=== PATIENT | female | born 1975 | race Two or more races ===

== ENCOUNTER 2019-04-14 10:30 | Emergency (ER) | payer OTHER ==
[~2019-04-14] VITALS: Ht 152.4 cm; Wt 70.3 kg
[2019-04-14 10:49] VITALS: BP 113/71
[2019-04-14 11:56] LABS: Urine Bacteria FEW /hpf (None Seen); Urine Blood 1+ /uL (Negative); Urine Mucus FEW (None Seen); Urine Specific Gravity 1.039 (1.001-1.035); Urine WBC 37 /hpf (0 - 5)
== END 2019-04-14 13:37 | disposition left against medical advice (07) ==
LOC: ER 10:30
DX: R10.32 Left lower quadrant pain (principal); Z53.21 Procedure and treatment not carried out due to patient leaving prior to being seen by health care provider
CPT/HCPCS: 81001

== ENCOUNTER 2020-01-02 14:19 | Emergency (ER) | payer BC, OTHER ==
[~2020-01-02] VITALS: Ht 152.4 cm; Wt 74.8 kg
[2020-01-02] MEDS ORDERED: DOXYCYCLINE 100MG/250ML 250 ML IV ONE (18:30)
[2020-01-02] MEDS ORDERED: DexAMETHasone SOD PHOS 10MG/1ML VIAL INJ IV ONE (18:30)
[2020-01-02] MEDS ORDERED: SODIUM CHLORIDE 0.9% 1,000 ML IV ONE (18:30)
[2020-01-02 19:27] LABS: Albumin 3.5 g/dL (3.4-5.0); BUN/Creatinine Ratio 20.8; Calcium 8.7 mg/dL (8.5-10.1); Potassium 3.4 mmol/L (3.5-5.1)
[2020-01-02 19:29] LABS: Bilirubin, Total 0.2 mg/dL (0.2-1.0)
[2020-01-02 19:30] LABS: INR 0.96 (0.9-1.15); Partial Thromboplastin Time 26.2 sec (23.0-31.2)
[2020-01-02 20:13] LABS: Basophils # (auto) 0 10 ^3/uL (0-0.2); Basophils % (auto) 0.1 % (0.0-2.0); Eosinophils # (auto) 0 10 ^3/uL (0-0.8); Eosinophils % (auto) 0.1 % (0.0-7.0); Hematocrit 34.8 % (36.0-46.0); Hemoglobin 11.4 g/dL (12.2-16.2); Lymphocytes # (auto) 0.7 10 ^3/uL (0.4-5.4); Lymphocytes % (auto) 15.7 % (10.0-50.0); Mean Corpuscular Hemoglobin 29.8 pg (28.0-32.0); Mean Corpuscular Hgb Conc. 32.7 g/dL (32.0-36.0); Mean Corpuscular Volume 91.1 fL (80.0-100.0); Monocytes # (auto) 0.3 10 ^3/uL (0-1.3); Monocytes % (auto) 6.4 % (0.0-12.0); Neutrophils # (auto) 3.3 10 ^3/uL (1.6-8.6); Neutrophils % (auto) 77.7 % (37.0-80.0); Platelet Count (auto) 194 10^3/uL (140-450); Red Blood Cells 3.82 10^6/uL (4.0-5.20); Red Cell Distribution Width 13.9 % (11.8-14.3); White Blood Cell 4.3 10^3/uL (4.4-10.8)
[2020-01-02 23:00] VITALS: BP 123/87
== END 2020-01-02 23:30 | disposition home or self-care (01) ==
LOC: ER 14:32
DX: U07.1 COVID-19 (principal); J18.9 Pneumonia, unspecified organism; J01.00 Acute maxillary sinusitis, unspecified
CPT/HCPCS: 36415; 71045; 80053; 83880; 85025; 85610; 85730; 87040; 87070; 87426; 87804; 87880; 96365; 96366; 96375; 99285; J1100; J3490

== ENCOUNTER 2021-11-28 19:35 | Emergency (ER) | payer BC, OTHER ==
[~2021-11-28] VITALS: Ht 152.4 cm; Wt 80.0 kg
[2021-11-28 20:37] LABS: Basophils # (auto) 0 10 ^3/uL (0-0.2); Basophils % (auto) 0.7 % (0.0-2.0); Eosinophils # (auto) 0.1 10 ^3/uL (0-0.8); Eosinophils % (auto) 1.7 % (0.0-7.0); Hematocrit 40.7 % (36.0-46.0); Hemoglobin 13.5 g/dL (12.2-16.2); Lymphocytes % (auto) 39.4 % (10.0-50.0); Mean Corpuscular Hemoglobin 29.1 pg (28.0-32.0); Mean Corpuscular Hgb Conc. 33.1 g/dL (32.0-36.0); Mean Corpuscular Volume 87.8 fL (80.0-100.0); Monocytes # (auto) 0.4 10 ^3/uL (0-1.3); Monocytes % (auto) 8.3 % (0.0-12.0); Neutrophils # (auto) 2.6 10 ^3/uL (1.6-8.6); Neutrophils % (auto) 49.9 % (37.0-80.0); Nucleated Red Blood Cells % 0.1 %; Red Blood Cells 4.64 10^6/uL (4.0-5.20); White Blood Cell 5.2 10^3/uL (4.4-10.8)
[2021-11-28 20:53] LABS: INR 0.93 (0.9-1.15); Partial Thromboplastin Time 23.9 sec (24.6-33.4)
[2021-11-28 20:55] LABS: Albumin 3.5 g/dL (3.4-5.0); Calcium 8.8 mg/dL (8.5-10.1); Magnesium 2.4 mg/dL (1.6-2.6)
[2021-11-28 20:58] LABS: BUN/Creatinine Ratio 15.4; Bilirubin, Total 0.3 mg/dL (0.2-1.0); Total Protein 8.2 g/dL (6.4-8.2)
[2021-11-28 22:31] LABS: Urine Bacteria NONE SEEN /hpf (None Seen); Urine Blood Negative /uL (Negative); Urine Mucus FEW (None Seen); Urine Specific Gravity 1.034 (1.001-1.035); Urine WBC 2 /hpf (0 - 5)
[2021-11-29 05:50] VITALS: BP 105/77
== END 2021-11-29 06:08 | disposition home or self-care (01) ==
LOC: ER 19:35
DX: R07.89 Other chest pain (principal)
CPT/HCPCS: 36415; 71045; 74176; 80053; 81001; 81025; 83735; 83880; 84484; 85025; 85379; 85610; 85730; 93005

== ENCOUNTER 2022-02-21 11:02 | Emergency (ER) | payer OTHER ==
[~2022-02-21] VITALS: Ht 152.4 cm; Wt 77.6 kg
[2022-02-21 12:29] VITALS: BP 124/85
[2022-02-21] MEDS ORDERED: AZIT500T66 PO (12:59)
[2022-02-21] MEDS ORDERED: IBUP800T27 PO (12:59)
[2022-02-21] MEDS ORDERED: PROM1SOL4 PO (12:59)
[2022-02-21] MEDS ORDERED: IBUPROFEN 800 MG TAB PO ONE (13:00)
== END 2022-02-21 13:34 | disposition home or self-care (01) ==
LOC: ER 11:02
DX: J02.9 Acute pharyngitis, unspecified (principal); J20.9 Acute bronchitis, unspecified; Z98.51 Tubal ligation status
CPT/HCPCS: 71046

== ENCOUNTER 2022-06-02 20:41 | Emergency (ER) | payer OTHER ==
[~2022-06-02] VITALS: Ht 152.4 cm; Wt 77.0 kg
[~2022-06-02 20:41] MED LIST: AZIT500T66 PO; IBUP800T27 PO; PROM1SOL4 PO
[2022-06-02 21:43] LABS: Urine Bacteria NONE SEEN /hpf (None Seen); Urine Blood 1+ /uL (Negative); Urine Specific Gravity 1.028 (1.001-1.035); Urine WBC 1 /hpf (0 - 5)
[2022-06-02 21:53] LABS: Basophils # (auto) 0.1 10 ^3/uL (0-0.2); Basophils % (auto) 0.7 % (0.0-2.0); Eosinophils # (auto) 0 10 ^3/uL (0-0.8); Eosinophils % (auto) 0.5 % (0.0-7.0); Hemoglobin 13.2 g/dL (12.2-16.2); Lymphocytes # (auto) 2.8 10 ^3/uL (0.4-5.4); Mean Corpuscular Hemoglobin 29.4 pg (28.0-32.0); Mean Corpuscular Hgb Conc. 34.7 g/dL (32.0-36.0); Mean Corpuscular Volume 84.6 fL (80.0-100.0); Monocytes # (auto) 0.6 10 ^3/uL (0-1.3); Neutrophils # (auto) 4.1 10 ^3/uL (1.6-8.6); Neutrophils % (auto) 53.8 % (37.0-80.0); Nucleated Red Blood Cells % 0.2 %; Red Blood Cells 4.49 10^6/uL (4.0-5.20); Red Cell Distribution Width 13.8 % (11.8-14.3); White Blood Cell 7.7 10^3/uL (4.4-10.8)
[2022-06-02 22:11] LABS: Albumin 3.2 g/dL (3.4-5.0); BUN/Creatinine Ratio 26.5 (10.0-20.0); Calcium 8.8 mg/dL (8.5-10.1); Potassium 3.5 mmol/L (3.5-5.1)
[2022-06-02 22:20] LABS: Bilirubin, Total 0.2 mg/dL (0.2-1.0)
[2022-06-02] MEDS ORDERED: HYDROcodone-ACET 5/325MG TAB PO ONE (22:45)
[2022-06-02 23:45] VITALS: BP 123/85
== END 2022-06-02 23:50 | disposition home or self-care (01) ==
LOC: ER 20:41
DX: R10.2 Pelvic and perineal pain (principal); R30.0 Dysuria; F41.9 Anxiety disorder, unspecified; Z98.890 Other specified postprocedural states; Z98.51 Tubal ligation status
CPT/HCPCS: 36415; 76856; 80053; 81001; 83690; 85025

== ENCOUNTER 2023-05-27 03:28 | Emergency (ER) | payer MEDICAID, OTHER ==
[~2023-05-27] VITALS: Ht 152.4 cm; Wt 84.3 kg
[~2023-05-27 03:28] MED LIST changes: +IBUP-1456 PO; -IBUP800T27 PO
[2023-05-27 04:36] LABS: Alanine Aminotransferase 33 U/L (7-40); Alkaline Phosphatase 107 U/L (46-116); Anion Gap 4 (5-15); Aspartate Aminotransferase 28 U/L (13-40); BUN/Creatinine Ratio 23.2 (10.0-20.0); Blood Urea Nitrogen 16 mg/dL (9-23); Calcium 9.9 mg/dL (8.7-10.4); Carbon Dioxide 27 mmol/L (20-30); Chloride 107 mmol/L (98-107); Glucose 107 mg/dL (74-106); Potassium 3.9 mmol/L (3.5-5.1); Sodium 138 mmol/L (136-145)
[2023-05-27 04:37] LABS: Albumin 4.2 g/dL (3.2-4.8); Bilirubin, Total 0.4 mg/dL (0.2-1.0); Total Protein 8.6 g/dL (5.7-8.2)
[2023-05-27 04:44] LABS: Basophils # (auto) 0 10 ^3/uL (0-0.2); Basophils % (auto) 0.5 % (0.0-2.0); Eosinophils # (auto) 0 10 ^3/uL (0-0.8); Eosinophils % (auto) 0.8 % (0.0-7.0); Hematocrit 42.5 % (36.0-46.0); Hemoglobin 14.3 g/dL (12.2-16.2); Lymphocytes # (auto) 2.5 10 ^3/uL (0.4-5.4); Lymphocytes % (auto) 46.9 % (10.0-50.0); Mean Corpuscular Hemoglobin 29.7 pg (28.0-32.0); Mean Corpuscular Hgb Conc. 33.6 g/dL (32.0-36.0); Mean Corpuscular Volume 88.6 fL (80.0-100.0); Monocytes # (auto) 0.5 10 ^3/uL (0-1.3); Monocytes % (auto) 10.1 % (0.0-12.0); Neutrophils # (auto) 2.3 10 ^3/uL (1.6-8.6); Neutrophils % (auto) 41.7 % (37.0-80.0); Nucleated Red Blood Cells % 0.2 %; Red Blood Cells 4.79 10^6/uL (4.0-5.20); Red Cell Distribution Width 13.1 % (11.8-14.3); White Blood Cell 5.4 10^3/uL (4.4-10.8)
[2023-05-27 07:37] VITALS: BP 128/89; PULSE 73; RESP 18; TEMP 98.1; O2SAT 98
== END 2023-05-27 07:37 | disposition home or self-care (01) ==
LOC: ER 03:28
DX: R07.89 Other chest pain (principal); F41.9 Anxiety disorder, unspecified; Z98.890 Other specified postprocedural states; Z79.899 Other long term (current) drug therapy
CPT/HCPCS: 36415; 71045; 80053; 83880; 84484; 85025; 85379; 93005

== ENCOUNTER 2024-05-24 21:44 | Inpatient (IN) | payer MEDICAID ==
[~2024-05-24] VITALS: Ht 152.4 cm; Wt 87.4 kg
--- NOTE | 2024-05-25 00:04 | ED.PDOC ---
History of Present Illness HPI Comments 48 y/o obese F, with a history of anxiety, presents with c/o non-radiating, sternal chest pain, today. Patient reports sudden and unprovoked onset of pain that has been constant since 0600, this morning. She stats on pain worsening with deep breathing. Patient reports no shortness of breath, palpitations, na usea, vomiting, or other associated symptoms or modifiers at this time. Chief Complaint: Chest Pain Time Seen by MD: 21:50 Primary Care Provider: NONE Allergies: Coded Allergies: NO KNOWN ALLERGIES (Unverified , 11/28/21) Home Meds Active Scripts Ibuprofen (Ibuprofen) 800 Mg Tab, 1 TAB PO TID, #20 TAB Prov:NIALL OLIVERA 02/21/22 Promethazine-Dm (Promethazine Dm 6.25-15 mg/5Ml) 1 Christina Christina, 5 ML PO TID, #150 ML Prov:NIALL OLIVERA 02/21/22 Azithromycin (Azithromycin) 500 Mg Tab, 1 TAB PO DAILY, #5 TAB Prov:NIALL OLIVERA 02/21/22 Mode of Arrival: Ambulatory Past Medical History PAST MEDICAL HISTORY: Anxiety Past Medical History (Other): obesity Surgical History: , Tubal Ligation BIOPROCESS ENGINEER History: No Pertinent BIOPROCESS ENGINEER History Family History Family History: Reviewed,noncontributory to illness Social History Smoker: Non-Smoker Alcohol: Denies ETOH Use Drugs: Denies Drug Use Lives In: Home All Other Systems: Reviewed and Negative (Comprehensive systems review obtained and negative except for what is stated in the HPI.) Physical Exam General Appearance: No Apparent Distress, Obese HEENT: Normal ENT Inspection, Pharynx Normal, TMs Normal Neck: Full Range of Motion, Non-Tender, Normal, Normal Inspection Respiratory: Chest Non-Tender, Lungs Clear, No Accessory Muscle Use, No Respiratory Distress, Normal Breath Sounds Cardiovascular: No Edema, No JVD, No Murmur, No Gallop, Normal Peripheral Pulses, Regular Rate/Rhythm Breast Exam: Deferred Gastrointestinal: No Organomegaly, Non Tender, No Pulsatile Mass, Normal Bowel Sounds, Soft Genitalia: Deferred Pelvic: Deferred Rectal: Deferred Extremities: No calf tenderness, Normal capillary refill, Normal inspection, Normal range of motion, Non-tender, No pedal edema Musculoskeletal : Apperance: Normal Neurologic: Alert, internal combustion engine assembler II-XII nml as Tested, No Motor Deficits, Normal Affect, Normal Mood, No Sensory Deficits Cerebellar Function: Normal Reflexes: Normal Skin: Dry, Normal Color, Warm Lymphatic: No Adenopathy Was a procedure done? Was a procedure done?: No EKG EKG #1: Pulse Rate (adult): 94 [place]: Normal Cardiac Rhythm: NSR, PVC's Block: None Hypertrophy: None ST: Normal EKG #2: Pulse Rate (adult): 87 [place]: Normal Cardiac Rhythm: NSR Block: None Hypertrophy: None ST: Normal Differential Dx Considerations may include: IA, PE, ACS, URI, PNA, viral syndrome, anxiety, costochondritis, pericarditis, angina, among others X-Ray, Labs, Meds, VS Vital Signs Date Time Temp Pulse Resp B/P (MAP) Pulse Ox O2 Delivery O2 Flow Rate FiO2 05/25/24 00:53 92 18 120/79 05/25/24 00:41 120/79 05/25/24 00:04 87 05/24/24 22:47 87 05/24/24 22:09 98.1 92 20 126/93 (104) 100 98.1 05/24/24 21:54 94 Lab Test 05/25/24 00:14 05/24/24 22:08 Range/Units Urine Opiates Screen Pending Urine Fentanyl Screen Pending Urine Barbiturates Screen Pending Urine Phencyclidine Screen Pending Urine Amphetamines Screen Pending Urine Benzodiazepines Screen Pending Urine Cocaine Screen Pending Urine Cannabinoids Screen Pending White Blood Count 7.6 4.4-10.8 10^3/uL Red Blood Count 4.73 4.0-5.20 10^6/uL Hemoglobin 14.3 12.2-16.2 g/dL Hematocrit 42.1 36.0-46.0 % Mean Corpuscular Volume 89.0 80.0-100.0 fL Mean Corpuscular Hemoglobin 30.2 28.0-32.0 pg Mean Corpuscular Hemoglobin Concent 34.0 32.0-36.0 g/dL Red Cell Distribution Width 13.7 11.8-14.3 % Platelet Count 228 140-450 10^3/uL Mean Platelet Volume 9.7 6.9-10.8 fL Neutrophils (%) (Auto) 59.5 37.0-80.0 % Lymphocytes (%) (Auto) 33.7 10.0-50.0 % Monocytes (%) (Auto) 5.9 0.0-12.0 % Eosinophils (%) (Auto) 0.6 0.0-7.0 % Basophils (%) (Auto) 0.3 0.0-2.0 % Neutrophils # (Auto) 4.5 1.6-8.6 10 ^3/uL Lymphocytes # (Auto) 2.6 0.4-5.4 10 ^3/uL Monocytes # (Auto) 0.5 0-1.3 10 ^3/uL Eosinophils # (Auto) 0 0-0.8 10 ^3/uL Basophils # (Auto) 0 0-0.2 10 ^3/uL Nucleated Red Blood Cells 0.2 % Sodium Level 139 136-145 mmol/L Potassium Level 3.9 3.5-5.1 mmol/L Chloride Level 107 98-107 mmol/L Carbon Dioxide Level 26 20-31 mmol/L Anion Gap 6 5-15 Blood Urea Nitrogen 18 9-23 mg/dL Creatinine 0.81 0.550-1.02 mg/dL Glomerular Filtration Rate Calc 89 >90 mL/min BUN/Creatinine Ratio 22.2 H 10.0-20.0 Serum Glucose 127 H 74-106 mg/dL Calcium Level 9.8 8.7-10.4 mg/dL Troponin I High Sensitivity 449 *H </=34 ng/L Current Medications Medications (Trade) Dose Ordered Sig/Kenny Route Start Time Stop Time Status Last Admin Aspirin 162 mg ONCE ONCE PO 05/25/24 00:15 05/25/24 00:16 DC 05/25/24 00:40 Nitroglycerin (Ntrostat Sublingual) 0.4 mg ONCE ONCE SL 05/25/24 00:30 05/25/24 00:37 DC 05/25/24 00:41 Morphine Sulfate 2 mg ONCE ONCE IV 05/25/24 00:30 05/25/24 00:37 DC 05/25/24 00:53 Ondansetron HCl (Zofran) 4 mg ONCE ONCE IV 05/25/24 00:30 05/25/24 00:37 DC 05/25/24 00:52 Time of 1ST Reevaluation: 22:20 Reevaluation 1ST: Unchanged Time of 2ND Reevaluation: 00:58 Reevaluation 2ND: Improved Patient Education/Counseling: Diagnosis, Treatment, Prognosis, Need For Follow Up Family Education/Counseling: No Family Present Additional Information Previous medical encounters reviewed: May 27, 2023 encounter for non-cardiac chest pain The following tests were ordered, and results were reviewed by me: EKG, troponin, CXR Additional Information was gathered from interviewing the following independent historians: n/a I reviewed and agreed with the following test results read by other providers: CXR I discussed treatment and results with medical personnel and: Patient Departure 1 Departure Time of Disposition: 00:58 Impression: Primary Impression: NSTEMI (non-ST elevated myocardial infarction) Disposition: ADMITTED INPATIENT Admit to: Tele Condition: Serious Discharged With: Self Critical Care Note Critical Care Time?: No Stability Stability form required: No Heart Score Heart Score: Heart Score Response (Comments) Value History Slightly Suspicious 0 EKG Normal 0 Age 45-64 1 Risk Factors No known risk factors 0 Troponin >3 x's Normal limit 2 Total 3 I personally scribed for JUAN DUVAL MD ([email or web address]) on 05/25/24 at 00:04. Electronically submitted by Maicol Rick [email or web address]). JUAN DUVAL MD May 25, 2024 00:04
[2024-05-25 00:20] LABS: Basophils # (auto) 0 10 ^3/uL (0-0.2); Basophils % (auto) 0.3 % (0.0-2.0); Eosinophils # (auto) 0 10 ^3/uL (0-0.8); Eosinophils % (auto) 0.6 % (0.0-7.0); Hematocrit 42.1 % (36.0-46.0); Hemoglobin 14.3 g/dL (12.2-16.2); Lymphocytes # (auto) 2.6 10 ^3/uL (0.4-5.4); Lymphocytes % (auto) 33.7 % (10.0-50.0); Mean Corpuscular Hemoglobin 30.2 pg (28.0-32.0); Monocytes # (auto) 0.5 10 ^3/uL (0-1.3); Monocytes % (auto) 5.9 % (0.0-12.0); Neutrophils # (auto) 4.5 10 ^3/uL (1.6-8.6); Neutrophils % (auto) 59.5 % (37.0-80.0); Nucleated Red Blood Cells % 0.2 %; Platelet Count (auto) 228 10^3/uL (140-450); Red Blood Cells 4.73 10^6/uL (4.0-5.20); Red Cell Distribution Width 13.7 % (11.8-14.3); White Blood Cell 7.6 10^3/uL (4.4-10.8)
[2024-05-25 00:27] LABS: Chloride 107 mmol/L (98-107); Potassium 3.9 mmol/L (3.5-5.1); Sodium 139 mmol/L (136-145)
[2024-05-25 00:28] LABS: Anion Gap 6 (5-15); Calcium 9.8 mg/dL (8.7-10.4); Carbon Dioxide 26 mmol/L (20-31)
[2024-05-25 00:33] LABS: BUN/Creatinine Ratio 22.2 (10.0-20.0); Blood Urea Nitrogen 18 mg/dL (9-23)
[2024-05-25 00:38] LABS: Glucose 127 mg/dL (74-106)
[2024-05-25] MEDS: ASPirin 81 mg TAB PO ONE (00:40)
[2024-05-25] MEDS: NITROGLYCERIN 0.4 MG SL TAB SL ONE (00:41)
[2024-05-25] MEDS: ONDANSETRON HCL 4 MG/2 ML VIAL IV ONE (00:52)
[2024-05-25] MEDS: MORPHINE SULFATE INJ 2 MG/ml SYRG IV ONE (00:53)
[2024-05-25 01:23] VITALS: PULSE 92; RESP 16; O2SAT 99
[2024-05-25 01:26] LABS: Amphetamine Screen, Urine Neg (NEGATIVE); Barbiturate Scree,Urine Neg (NEGATIVE); Benzodiazephine Screen, Urine Neg (NEGATIVE); Cannabinoid Screen, Urine Neg (NEGATIVE); Cocaine Screen, Urine Neg (NEGATIVE); Opiate Scree,Urine Neg (NEGATIVE); Phencyclidine Screen, Urine Neg (NEGATIVE)
--- NOTE | 2024-05-25 01:40 | DVH ---
CHEST RADIOGRAPH Indication: cp Technique: Single frontal view of the chest was obtained Comparison: XY CHEST PORTABLE on DOS: 05/27/23, CHEST PORTABLE on DOS: 11/28/21, CXRP on DOS: 11/28/21 FINDINGS: Lines and Tubes: None Lungs: Clear Pleura: No effusion. No pneumothorax. Cardiomediastinal contours: Unremarkable Bones: Unremarkable IMPRESSION: Clear lungs.
[2024-05-25] MEDS ORDERED: HYDROcodone-ACET 5/325MG TAB PO PRN (14:00)
[2024-05-25] MEDS ORDERED: MORPHINE SULFATE INJ 2 MG/ml SYRG IV PRN (14:00)
[2024-05-25] MEDS ORDERED: DOCUSATE SOD 100 MG CAP PO PRN (14:00)
[2024-05-25] MEDS ORDERED: NITROGLYCERIN 0.4 MG SL TAB SL PRN (14:00)
[2024-05-25] MEDS ORDERED: ONDANSETRON HCL 4 MG/2 ML VIAL IV PRN (14:00)
[2024-05-25] MEDS ORDERED: ACETAMINOPHEN 325 MG TAB PO PRN (14:00)
--- NOTE | 2024-05-25 14:06 | DVHHP2 ---
History of Present Illness Reason for Visit: Chest pain History of Present Illness Melinda Horne is a 48-year-old female with past medical history of anxiety, who came in for chest pain. Patient states her chest pain began yesterday about 0500 while getting ready for work. She states the pain continued while she drove to work, and worsened with ambulation. She did not stay at work and was home around 0700. She tried taking ibuprofen, then aspirin, then Tylenol without any improvement. She tried going to sleep around 2100, however, the pain continued to she came to the hospital. After being at the hospital for a while her chest pain seemed to improve a little so she left. About 2200 her troponin came back critical, and she was called and asked to return to the ER for further evaluation. Patient states about 10 years ago she had chest pain and underwent a left heart cath. She denies any stents or interventions required at that time. The subsequent troponin levels are trending down. Patient will be admitted with cardiology consult. Psych: Anxiety Past Surgical History: (x 2), Tubal Ligation Smoke: No ALCOHOL: none Drugs: None Lives: with Family Domestic Violence: Neg Review of Systems Constitutional: No: Fever, Chills, Sweats, Weakness, Malaise, Other Eyes: No: Pain, Vision change, Conjunctivae inflammation, Eyelid inflammation, Other, Redness ENT: No: Ear pain, Ear discharge, Nose pain, Nose discharge, Nose congestion, Mouth pain, Mouth swelling, Throat pain, Throat swelling, Other Respiratory: No: Cough, Dry, Shortness of breath, SOB with excertion, Wheezing, Hemoptysis, Pleuritic Pain, Sputum, Wheezing, Other Cardiovascular: Chest Pain; No: Palpitations, Orthopnea, Paroxysmal Noc. Dyspnea, Edema, Lt Headedness, Other Gastrointestinal: No: Nausea, Vomiting, Abdominal Pain, Diarrhea, Constipation, Melena, Hematochezia, Other Genitourinary: No Dysuria, No Frequency, No Incontinence, No Hematuria, No Retention, No Other Musculoskeletal: No: other, neck pain, shoulder pain, arm pain, back pain, hand pain, leg pain, foot pain Skin: No: Rash, Lesions, Jaundice, Bruising, Other Neurological: No: Weakness, Numbness, Incoordination, Change in speech, Confusion, Seizures, Other Allergies: Coded Allergies: NO KNOWN ALLERGIES (Unverified , 11/28/21) Medications Current Medications Medications Dose Ordered Sig/Kenny Route Start Time Stop Time Status Last Admin Dose Admin Acetaminophen/ Hydrocodone Bitart 1 tab Q4HP PRN PO 05/25/24 14:00 UNV Ondansetron HCl 4 mg Q4HP PRN IV 05/25/24 14:00 UNV Docusate Sodium 100 mg BIDPRN PRN PO 05/25/24 14:00 UNV Acetaminophen 650 mg Q6HP PRN PO 05/25/24 14:00 UNV Nitroglycerin 0.4 mg Q5MINP PRN SL 05/25/24 14:00 UNV Morphine Sulfate 2 mg Q30M PRN IV 05/25/24 14:00 UNV Exam Vital Signs Vital Signs Date Time Temp Pulse Resp B/P (MAP) Pulse Ox O2 Delivery O2 Flow Rate FiO2 05/25/24 12:00 98.4 90 12 95/59 (71) 98 98.4 05/25/24 09:00 Room Air* 0 21 General Appearance: Alert, Oriented X3, Cooperative, mild distress HEENT: Atraumatic, PERRLA Respiratory: Clear to auscultation, Normal air movement Cardiovascular: Regular rate, Normal S1, Normal S2 Abdominal: Normal bowel sounds, Soft, No tenderness Extremities: No clubbing, No cyanosis, No edema Skin: No rashes, No breakdown, No significant lesion Neuro: Normal gait, Normal speech, Strength at 5/5 X4 ext Psych/Mental Status: Mental status NL, Mood NL Labs/Xrays Labs Test 05/25/24 04:06 05/25/24 00:14 05/24/24 22:08 Range/Units Troponin I High Sensitivity 191 *H </=34 ng/L Urine Opiates Screen Neg NEGATIVE Urine Fentanyl Screen Neg NEGATIVE Urine Barbiturates Screen Neg NEGATIVE Urine Phencyclidine Screen Neg NEGATIVE Urine Amphetamines Screen Neg NEGATIVE Urine Benzodiazepines Screen Neg NEGATIVE Urine Cocaine Screen Neg NEGATIVE Urine Cannabinoids Screen Neg NEGATIVE White Blood Count 7.6 4.4-10.8 10^3/uL Red Blood Count 4.73 4.0-5.20 10^6/uL Hemoglobin 14.3 12.2-16.2 g/dL Hematocrit 42.1 36.0-46.0 % Mean Corpuscular Volume 89.0 80.0-100.0 fL Mean Corpuscular Hemoglobin 30.2 28.0-32.0 pg Mean Corpuscular Hemoglobin Concent 34.0 32.0-36.0 g/dL Red Cell Distribution Width 13.7 11.8-14.3 % Platelet Count 228 140-450 10^3/uL Mean Platelet Volume 9.7 6.9-10.8 fL Neutrophils (%) (Auto) 59.5 37.0-80.0 % Lymphocytes (%) (Auto) 33.7 10.0-50.0 % Monocytes (%) (Auto) 5.9 0.0-12.0 % Eosinophils (%) (Auto) 0.6 0.0-7.0 % Basophils (%) (Auto) 0.3 0.0-2.0 % Neutrophils # (Auto) 4.5 1.6-8.6 10 ^3/uL Lymphocytes # (Auto) 2.6 0.4-5.4 10 ^3/uL Monocytes # (Auto) 0.5 0-1.3 10 ^3/uL Eosinophils # (Auto) 0 0-0.8 10 ^3/uL Basophils # (Auto) 0 0-0.2 10 ^3/uL Nucleated Red Blood Cells 0.2 % Sodium Level 139 136-145 mmol/L Potassium Level 3.9 3.5-5.1 mmol/L Chloride Level 107 98-107 mmol/L Carbon Dioxide Level 26 20-31 mmol/L Anion Gap 6 5-15 Blood Urea Nitrogen 18 9-23 mg/dL Creatinine 0.81 0.550-1.02 mg/dL Glomerular Filtration Rate Calc 89 >90 mL/min BUN/Creatinine Ratio 22.2 H 10.0-20.0 Serum Glucose 127 H 74-106 mg/dL Calcium Level 9.8 8.7-10.4 mg/dL CHEST RADIOGRAPH FINDINGS: Lines and Tubes: None Lungs: Clear Pleura: No effusion. No pneumothorax. Cardiomediastinal contours: Unremarkable Bones: Unremarkable IMPRESSION: Clear lungs. Assessment/Plan Assessment/Plan Assessment: NSTEMI (non-ST elevated myocardial infarction), R/O coronary artery disease, Obesity, Plan: Admit to Tele, Cardiology consult, ECHO, Lipid panel, TSH, A1c, ASA and statin started, Chest pain protocol, Plan discussed with: Patient My Orders Orders - INEZ MARCUS Procedure Category Date Status Time Admit ADMIT 05/25/24 Transmitted 13:53 Code Status CODE 05/25/24 Transmitted 13:53 Hydrocodone-Acet PHA 05/25/24 Logged 5/325mg Tab ([place] 14:00 Ondansetron Hcl PHA 05/25/24 Logged (Zofran) 14:00 Docusate Sodium PHA 05/25/24 Logged Capsule (Colace 14:00 Complete Blood Count LAB 05/26/24 Verified 04:00 Comprehensive LAB 05/26/24 Verified Metabolic Panel 04:00 Npo (Nothing By DIET 05/25/24 Transmitted Mouth) Diet Dinner Echo 2d Mode Cardiac US 05/25/24 Logged DOP 13:53 Condition: Serious SJ 05/25/24 In Process 13:53 Acetaminophen Tablet PHA 05/25/24 Logged (Tylenol Tablet) 14:00 Nitroglycerin PHA 05/25/24 Logged Sublingual (Ntrostat 14:00 Morphine Sulfate PHA 05/25/24 Logged Injection 14:00 Stat Ekg For Chest SJ 05/25/24 In Process Pain 13:53 Notify Md Of Changes SJ 05/25/24 In Process From Base 13:53 Head Paper Tester For SJ 05/25/24 In Process 24 Hours 13:53 Emergency Dysrhythmia SJ 05/25/24 In Process Protocol 13:53 Rhythm Strips Once SJ 05/25/24 In Process Every Shift 13:53 Oxygen By Nasal RT 05/25/24 Transmitted Cannula 13:53 * Cardiology Consult CONS 05/25/24 Transmitted 13:53 Date of Service: May 25, 2024 Billing Provider: INEZ MARCUS Common Visit Codes: [id number] INP/OBS CARE (MOD) INEZ MARCUS May 25, 2024 14:06
[2024-05-25 14:40] LABS: Triglycerides 127 mg/dL (< 150)
[2024-05-25 14:41] LABS: LDL Cholesterol 60 mg/dL (< 100)
[2024-05-25 14:43] LABS: Cholesterol 104 mg/dL (< 200)
[2024-05-25 14:53] LABS: HDL Cholesterol 29 mg/dL (40-59)
--- NOTE | 2024-05-25 15:09 | DVHINCON2 ---
Date Seen: May 25, 2024 Referring Physician MD Hudson Reason for Consultation NSTEMI History of Present Illness The pleasant 48-year-old female who presented to the emergency room with a chief complaint of chest pain yesterday. Describes her chest pain as substernal, nonradiating, constant, and associated with a headache. Per patient she self- medicated with ibuprofen, Tylenol, and ASA last night to help relieve symptoms. The patient also endorses a similar episode of chest pain on Friday lasting a few seconds. She also reports undergoing a cardiac catheterization without catheter based intervention at [facility] approximately 10 years ago. She underwent multiple 12 lead electrocardiograms x2 revealing a sinus rhythm with T-wave inversion to lead aVL. Troponin levels peaked at 448 ng/L. Denies any significant past medical history. Past Medical History Past medical history reviewed. No other significant than mentioned above. Past Surgical History C-sections Family History Family history reviewed. Denies for cardiovascular disease. Social History Denies the use of illicit drugs, alcohol, or tobacco use. Allergies: Coded Allergies: NO KNOWN ALLERGIES (Unverified , 11/28/21) Home Meds Discontinued Scripts Ibuprofen (Ibuprofen) 800 Mg Tab, 1 TAB PO TID, #20 TAB Prov:NIALL OLIVERA 02/21/22 Promethazine-Dm (Promethazine Dm 6.25-15 mg/5Ml) 1 Christina Christina, 5 ML PO TID, #150 ML Prov:NIALL OLIVERA 02/21/22 Azithromycin (Azithromycin) 500 Mg Tab, 1 TAB PO DAILY, #5 TAB Prov:NIALL OLIVERA 02/21/22 Home Meds Home medications reviewed. Current Medications Current Medications Medications (Trade) Dose Ordered Sig/Kenny Route PRN Reason Start Time Stop Time Status Last Admin Acetaminophen/ Hydrocodone Bitart ([place] 5/325MG Tab) 1 tab Q4HP PRN PO MODERATE PAIN (4-6 PAIN SCALE) 05/25/24 14:00 Ondansetron HCl (Zofran) 4 mg Q4HP PRN IV NAUSEA / VOMITING 05/25/24 14:00 Docusate Sodium (Colace Capsule) 100 mg BIDPRN PRN PO FOR CONSTIPATION 05/25/24 14:00 Acetaminophen (Tylenol Tablet) 650 mg Q6HP PRN PO PAIN SCALE 1-3 OR TEMP>100.4 05/25/24 14:00 Nitroglycerin (Ntrostat Sublingual) 0.4 mg Q5MINP PRN SL FOR CHEST PAIN 05/25/24 14:00 Morphine Sulfate 2 mg Q30M PRN IV FOR CHEST PAIN 05/25/24 14:00 Atorvastatin Calcium (Lipitor) 40 mg HS PO 05/25/24 22:00 Aspirin 81 mg DAILY PO 05/26/24 10:00 Review of Systems Constitutional: No symptom reported Ears, Nose, & Throat: No symptom reported Eyes: No symptom reported Neurological: BRAGA Pulmonary/Respiratory: No symptom reported Cardiovascular: Chest pain Gastrointestinal: No symptom reported Genitourinary: No symptom reported Musculoskeletal: No symptom reported Skin: No symptom reported Psychiatric: No symptom reported Endocrine: No symptom reported Hemotologic/Lymphatic: No symptom reported Vital Signs Vital Signs Date Time Temp Pulse Resp B/P (MAP) Pulse Ox O2 Delivery O2 Flow Rate FiO2 05/25/24 12:00 98.4 90 12 95/59 (71) 98 98.4 05/25/24 09:00 Room Air* 0 21 Physical Exam General Appearance: Cooperative. Well developed. Obese. In no acute distress Head Exam: Normal inspection Neck Exam: Normal inspection. Non-tender. Normal alignment Pulmonary/Respiratory: Chest non-tender. Clear bilateral breath sounds Cardiovascular/Chest: Regular rate and rhythm. S1, S2. Sinus rhythm with T wave inversion to single lead aVL. No murmurs. No JVD. Peripheral Pulses: 2+ Radial (R). 2+ Radial (L). 2+ Pedal (R). 2+ Pedal (L) Abdominal Exam: Normal bowel sounds. Soft. Nontender. No hepatospenomegaly. No masses Ankle Exam: Negative ankle edema Lower extremities: Negative lower extremity edema Neuro/Mental Status: A&O x4. Coherent Thoughts/Psych: Normal thought pattern. Appropriate mood and affect. Good judgement and insight Appearance: In no acute distress Skin Exam: Normal inspection. Normal color. Warm. Dry Labs/Diagnostic Data Labs Test 05/25/24 04:06 05/25/24 00:14 05/24/24 22:08 Range/Units Troponin I High Sensitivity 191 *H </=34 ng/L Triglycerides Level 127 < 150 mg/dL Cholesterol Level 104 < 200 mg/dL LDL Cholesterol 60 < 100 mg/dL HDL Cholesterol 29 L 40-59 mg/dL Urine Opiates Screen Neg NEGATIVE Urine Fentanyl Screen Neg NEGATIVE Urine Barbiturates Screen Neg NEGATIVE Urine Phencyclidine Screen Neg NEGATIVE Urine Amphetamines Screen Neg NEGATIVE Urine Benzodiazepines Screen Neg NEGATIVE Urine Cocaine Screen Neg NEGATIVE Urine Cannabinoids Screen Neg NEGATIVE White Blood Count 7.6 4.4-10.8 10^3/uL Red Blood Count 4.73 4.0-5.20 10^6/uL Hemoglobin 14.3 12.2-16.2 g/dL Hematocrit 42.1 36.0-46.0 % Mean Corpuscular Volume 89.0 80.0-100.0 fL Mean Corpuscular Hemoglobin 30.2 28.0-32.0 pg Mean Corpuscular Hemoglobin Concent 34.0 32.0-36.0 g/dL Red Cell Distribution Width 13.7 11.8-14.3 % Platelet Count 228 140-450 10^3/uL Mean Platelet Volume 9.7 6.9-10.8 fL Neutrophils (%) (Auto) 59.5 37.0-80.0 % Lymphocytes (%) (Auto) 33.7 10.0-50.0 % Monocytes (%) (Auto) 5.9 0.0-12.0 % Eosinophils (%) (Auto) 0.6 0.0-7.0 % Basophils (%) (Auto) 0.3 0.0-2.0 % Neutrophils # (Auto) 4.5 1.6-8.6 10 ^3/uL Lymphocytes # (Auto) 2.6 0.4-5.4 10 ^3/uL Monocytes # (Auto) 0.5 0-1.3 10 ^3/uL Eosinophils # (Auto) 0 0-0.8 10 ^3/uL Basophils # (Auto) 0 0-0.2 10 ^3/uL Nucleated Red Blood Cells 0.2 % Sodium Level 139 136-145 mmol/L Potassium Level 3.9 3.5-5.1 mmol/L Chloride Level 107 98-107 mmol/L Carbon Dioxide Level 26 20-31 mmol/L Anion Gap 6 5-15 Blood Urea Nitrogen 18 9-23 mg/dL Creatinine 0.81 0.550-1.02 mg/dL Glomerular Filtration Rate Calc 89 >90 mL/min BUN/Creatinine Ratio 22.2 H 10.0-20.0 Serum Glucose 127 H 74-106 mg/dL Calcium Level 9.8 8.7-10.4 mg/dL Assessment Non ST-Elevation myocardial infarction Chest pain rule out coronary artery disease Rule out structural heart disease Obesity Plan/Recommendation (Dr. Winn) Scheduled for a transthoracic echocardiogram to rule out structural heart disease. Heart Score is at low risk for major cardiac events. Troponin levels with peak and fall levels and no active chest pain. Continue chest pain protocol. Monitor ECG changes and notify. Further orders per clinical course. Thank you for allowing us to participate in this patient's care. Please call if you have any questions or concerns. This medical document was created using an electronic medical record system with voice recognition software and computerized dictation system. Although this document has been carefully reviewed, there might still be some phonetic and typographical errors. Occasional wrong-word or ``sound-alike substitutions may have occurred due to the inherent limitations of voice recognition software. These areas are purely typographical due to imperfections of the software programs and do not reflect any compromise in the patient's medical care. Please read the chart carefully and recognize, using context, where these substitutions have occurred. Plan discussed with: Patient, Other NYHA Physical activity limitations: NA Date of Service: May 25, 2024 Billing Provider: MADDIE VELAZQUEZ Cardiology Common Codes: [id number] INP/OBS CARE (High) MADDIE VELAZQUEZ May 25, 2024 15:09
[2024-05-25 21:27] VITALS: PULSE 84; RESP 15; O2SAT 97
[2024-05-25 21:45] VITALS: BP 110/72; PULSE 80; RESP 18; TEMP 97.6; O2SAT 97
[2024-05-25 21:50] VITALS: BP 110/72; PULSE 80; RESP 18; TEMP 97.6; O2SAT 97
[2024-05-25] MEDS: ATORVASTATIN 20 MG TAB PO SCH (21:56)
[2024-05-26] VITALS (8 sets, daily range): BP systolic 93–127; BP diastolic 40–84; PULSE 64–90; RESP 18–20; TEMP 97.5–98.4; O2SAT 96–98
[2024-05-26 06:12] LABS: Basophils # (auto) 0 10 ^3/uL (0-0.2); Basophils % (auto) 0.5 % (0.0-2.0); Eosinophils # (auto) 0 10 ^3/uL (0-0.8); Eosinophils % (auto) 0.8 % (0.0-7.0); Hematocrit 40.4 % (36.0-46.0); Hemoglobin 13.9 g/dL (12.2-16.2); Lymphocytes # (auto) 1.8 10 ^3/uL (0.4-5.4); Lymphocytes % (auto) 45.5 % (10.0-50.0); Mean Corpuscular Hemoglobin 30.7 pg (28.0-32.0); Mean Corpuscular Hgb Conc. 34.4 g/dL (32.0-36.0); Mean Corpuscular Volume 89.1 fL (80.0-100.0); Monocytes # (auto) 0.3 10 ^3/uL (0-1.3); Neutrophils # (auto) 1.8 10 ^3/uL (1.6-8.6); Neutrophils % (auto) 46.2 % (37.0-80.0); Nucleated Red Blood Cells % 0.1 %; Platelet Count (auto) 192 10^3/uL (140-450); Red Blood Cells 4.53 10^6/uL (4.0-5.20); Red Cell Distribution Width 13.9 % (11.8-14.3)
[2024-05-26 06:36] LABS: Alanine Aminotransferase 17 U/L (7-40); Alkaline Phosphatase 91 U/L (46-116); Anion Gap 7 (5-15); Aspartate Aminotransferase 23 U/L (13-40); BUN/Creatinine Ratio 20.6 (10.0-20.0); Bilirubin, Total 0.6 mg/dL (0.2-1.0); Blood Urea Nitrogen 13 mg/dL (9-23); Calcium 9.3 mg/dL (8.7-10.4); Carbon Dioxide 25 mmol/L (20-31); Glucose 95 mg/dL (74-106); Potassium 3.9 mmol/L (3.5-5.1); Sodium 140 mmol/L (136-145); Total Protein 7.8 g/dL (5.7-8.2)
[2024-05-26 06:37] LABS: Chloride 108 mmol/L (98-107)
--- NOTE | 2024-05-26 07:53 | DVHSR ---
APPROVED REPORT EXAM: Two-dimensional and M-mode echocardiogram with Doppler and color Doppler. Blood Pressure: 95/59 mmHg INDICATION NSTEMI RISK FACTORS Height: 5', Weight: 180 DIMENSIONS LVDd4.5 (3.8-5.7cm)LA (2D)4.0 (1.9-4.0cm)Aortic Root2.9 (2.0-3.7cm) LVDs3.5 (2.5-4.0cm)LA (MM) (1.9-4.0cm)Aortic Cusp Exc2.1 (1.5-2.0cm) EF (%) 45.0 (55-70%)Rt. Atrium3.4 (1.9-4.0cm)Asc. Aorta2.8 cm IVSd1.0 (0.7-1.1cm)RV (D) (1.8-2.4cm) PWd0.8 (0.7-1.1cm) Mitral Valve MitralMitral Stenosis E wave0.81m/sMV Mean GR.mmHg A wave1.02m/sMV Peak GR.mmHg E/A ratio0.82D MVAcm2 DECEL [id number] 1/2 Timems Aortic Valve Aortic ValveAortic Stenosis V10.87m/Tracey Mean GR.4mmHg V21.16m/Tracey Peak GR.6mmHg LVOT Diameter2.0 (1.8-2.4cm)Doppler AVA2.36cm2 Pulmonic Valve V20.90m/s Tricuspid Valve TR Velocity2.06m/s [id number] Conclusion Technically good study. Sinus rhythm. Concentric LVH with left atrial enlargement. Valves are normal. Left ventricular function is mildly diminished. EF is approximately 45% with mild global hypokinesis . Right ventricular function is normal. The aortic root manifest a hyperdense ridge at the superior aspect along the non coronary cusp extend ing into the ascending aorta. Can not rule out aortic root thickening and or thrombosed flap. Clini megan correlation recommended. Mild pulmonic insufficiency. Mild tricuspid regurgitation. No pericardial effusion masses or vegetations discernible.
[2024-05-26] MEDS: ASPirin 81 mg TAB PO SCH (09:41)
[2024-05-26] MEDS ORDERED: IOHEXOL 350 MG/ML 100ML IJ ONE (09:43)
--- NOTE | 2024-05-26 10:22 | DVH ---
CT CT ANGIO CHEST CONTRAST INDICATION: Chest pain rule out ascending aortic dissection EXAM DATE: 05/26/2024 09:42 AM COMPARISON: None RADIATION DOSE: CTDIvol: 8.88 mGy, DLP: 735.87 mGy*cm PROCEDURE: Helical CT angiographic images were obtained of the chest with intravenous contrast. Sagi ttal and coronal reconstructions as well as MIPS are provided. Maximum intensity projections performe d (MIPs) were performed for CTA. ADDITIONAL IMAGES / REFORMATS: None All CT scans at this medical facility are performed using dose modulation techniques as appropriate t o a performed exam including the following: Automated exposure control was utilized; adjustment of th e MA and/or KV according to patient size; and use of iterative reconstruction technique. FINDINGS: Bones: Scattered degenerative changes are noted in the visualized osseous structures. Visualized Abdomen: Normal. Chest Wall: Normal. Soft tissues: Normal. Mediastinum: Normal. Heart: Normal. Vessels: No filling defects in the visualized pulmonary arteries including the segmental and subsegme ntal pulmonary arteries. Lymph Nodes: Normal. Pleura: Normal. Airways: Normal. Lung: Normal. Other: None IMPRESSION: No pulmonary embolism in the visualized pulmonary arteries including the segmental and subsegmental p ulmonary arteries.
--- NOTE | 2024-05-26 11:33 | DVHPNRES ---
Progress Note Date Seen: May 26, 2024 Resident Creating Document: DONOVAN BURGOS RESIDENT Medical Necessity Reason Pt with a Central, PICC or Fol: No Subjective Review of Systems This is a 48-year-old female with without any significant past medical history presented to the emergency with a chief complaint of chest pain for 1 day prior to this admission. Patient stated that chest pain as substernal, nonradiating, to the neck and jaw and sometimes in the left arm and associated with headache. patient she is medicated with ibuprofen, Tylenol, and aspirin last night to help reduce symptoms. the patient also mentioned similar episodes of chest pain on Friday lasting a few sec and underwent cardiac catheterization in [facility] 10 years ago. She underwent multiple 12 lead electrocardiograms x2 revealing a sinus rhythm with T-wave inversion to lead aVL. Troponin levels peaked at 448 ng/L. Echocardiogram revealed EF 45% with mild global hypokinesis and a hyperdense reach at the superior aspect along the non coronary cusp extending into the ascending aorta. cardiology on board and recommended CT angio with contrast to rule out aortic dissection. Patient was seen and examined on the bedside. she is alert oriented x3. mentioned feeling better and some chest discomfort. No other active complaint. Constitutional: No: Fever, Chills, Sweats, Weakness, Malaise, Other Eyes: No: Pain, Vision change, Conjunctivae inflammation, Eyelid inflammation, Other, Redness ENT: No: Ear pain, Ear discharge, Nose pain, Nose discharge, Nose congestion, Mouth pain, Mouth swelling, Throat pain, Throat swelling, Other Respiratory: Shortness of breath, improving No: Cough, Dry,Wheezing, Hemoptysis, Pleuritic Pain, Sputum, Wheezing, Other Cardiovascular: No: Chest Pain, Palpitations, Orthopnea, Paroxysmal Noc. Dyspnea, Edema, Lt Headedness, Other Gastrointestinal: No: Nausea, Vomiting, Abdominal Pain, Diarrhea, Constipation, Melena, Hematochezia, Other Musculoskeletal: No: other, neck pain, shoulder pain, arm pain, back pain, hand pain, leg pain, foot pain Neurological:; No: Weakness, Numbness, Incoordination, Change in speech, Confusion, Seizures Objective vital signs Vital Sign Date Time Temp Pulse Resp B/P (MAP) Pulse Ox O2 Delivery O2 Flow Rate FiO2 05/26/24 09:00 97.9 64 20 116/84 (95) 96 97.9 05/25/24 21:50 Room Air* 0 21 Total Intake and Output 05/25/24 05/25/24 05/26/24 15:00 23:00 07:00 Intake Total 0 ml Balance 0 ml medications Current Medications Medications Dose Ordered Sig/Kenny Route Start Time Stop Time Status Last Admin Dose Admin Acetaminophen/ Hydrocodone Bitart 1 tab Q4HP PRN PO 05/25/24 14:00 Ondansetron HCl 4 mg Q4HP PRN IV 05/25/24 14:00 Docusate Sodium 100 mg BIDPRN PRN PO 05/25/24 14:00 Acetaminophen 650 mg Q6HP PRN PO 05/25/24 14:00 Nitroglycerin 0.4 mg Q5MINP PRN SL 05/25/24 14:00 Morphine Sulfate 2 mg Q30M PRN IV 05/25/24 14:00 Atorvastatin Calcium 40 mg HS PO 05/25/24 22:00 05/25/24 21:56 40 MG Aspirin 81 mg DAILY PO 05/26/24 10:00 Examination Physical examination: General Appearance: Alert, Oriented X3, Cooperative, No acute distress HEENT: Atraumatic, PERRLA, EOMI, Mucous membrane moist/pink Respiratory: Clear to auscultation, Normal air movement Cardiovascular: Regular rate, Normal S1, Normal S2, No murmurs, no chest wall tenderness Abdominal: Normal bowel sounds, Soft, No tenderness, No hepatospenomegaly, No masses Extremities: No clubbing, No cyanosis, No edema, Normal pulses, No tenderness/swelling Skin: No rashes, No breakdown, No significant lesion Neuro: Normal gait, Normal speech, Strength at 5/5 X4 ext, Normal tone, Sensation intact, Cranial nerves 3-12 NL, Reflexes 2+ Psych/Mental Status: Mental status NL, Mood NL laboratory and microbiology Laboratory Tests 05/26/24 05:23 Test 05/26/24 05:23 Range/Units Serum Glucose 95 74-106 mg/dL Labs and/or images reviewed: Labs reviewed by me, Image(s) reviewed by me Problem List/Assessment/Plan Problem List/Assessment/Plan Assessment and plan: # Chest pain rule out ACS # Rule out coronary artery disease # NSTEMI # Chronic compensated HFmrEF, newly diagnosed # 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 Can not rule out aortic root thickening and or thrombosed flap - CT angio demonstrated possible short-segment dissection flap of the ascending thoracic aorta. - Cardiology recommended Given short segment dissection, clinical stability, and patient's asymptomatology, the latest findings are probably chronic in nature, GDMT for HFmrEF and outpatient stress test if necessary. - Continue aspirin 81 mg daily, atorvastatin 40 mg at HS, Entresto 24/26 mg 0.5 tab b.i.d., metoprolol tartrate 12.5 mg b.i.d., spironolactone 12.5 mg daily # PUD prophylaxis - Pepcid 40 mg po daily # DVT prophylaxis - Not recommended as patient is mobile Goal of care discussed with the patient for more than 15 minutes full code Plan discussed with Dr. Rosa Plan discussed with: Patient, Other Date of Service: May 26, 2024 Billing Provider: PIPPA PACK MD Common Visit Codes: [id number] INP/OBS CARE(HIGH) DONOVAN BURGOS RESIDENT May 26, 2024 11:33 PIPPA PACK MD May 27, 2024 00:20
--- NOTE | 2024-05-26 12:37 | ECG ---
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
--- NOTE | 2024-05-26 12:38 | ECG ---
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
--- NOTE | 2024-05-26 13:19 | DVHPN2 ---
Consult Progress Note Date Seen: May 26, 2024 Subjective Review of Systems: CVS:Normal, RESPIRATORY:Normal, NEURO:Normal Other Systems: Denies any cardiac symptoms Objective vital signs Vital Sign Date Time Temp Pulse Resp B/P (MAP) Pulse Ox O2 Delivery O2 Flow Rate FiO2 05/26/24 09:00 97.9 64 20 116/84 (95) 96 97.9 05/25/24 21:50 Room Air* 0 21 Total Intake and Output 05/25/24 05/25/24 05/26/24 15:00 23:00 07:00 Intake Total 0 ml Balance 0 ml medications Current Medications Medications Dose Ordered Sig/Kenny Route Start Time Stop Time Status Last Admin Dose Admin Acetaminophen/ Hydrocodone Bitart 1 tab Q4HP PRN PO 05/25/24 14:00 Ondansetron HCl 4 mg Q4HP PRN IV 05/25/24 14:00 Docusate Sodium 100 mg BIDPRN PRN PO 05/25/24 14:00 Acetaminophen 650 mg Q6HP PRN PO 05/25/24 14:00 Nitroglycerin 0.4 mg Q5MINP PRN SL 05/25/24 14:00 Morphine Sulfate 2 mg Q30M PRN IV 05/25/24 14:00 Atorvastatin Calcium 40 mg HS PO 05/25/24 22:00 05/25/24 21:56 40 MG Aspirin 81 mg DAILY PO 05/26/24 10:00 Empaglifozin 10 mg DAILY PO 05/27/24 10:00 Spironolactone 12.5 mg DAILY PO 05/27/24 10:00 Sacubitril/ Valsartan 0.5 tab BID PO 05/26/24 22:00 Metoprolol Tartrate 12.5 mg BID PO 05/26/24 22:00 Examination: LUNGS:Normal, CVS:Normal, NEURO:Normal laboratory and microbiology Laboratory Tests 05/26/24 05:23 Test 05/26/24 05:23 Range/Units Serum Glucose 95 74-106 mg/dL Problem List/Assessment/Plan Problem List/Assessment/Plan Non ST-Elevation myocardial infarction Chest pain rule out coronary artery disease Chronic compensated HFmrEF, 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 Winn) Case discussed with Dr. Winn. Transthoracic echocardiogram revealed an EF of 45%. The aortic root manifested hyperdense ridge at the superior aspect along the non-coronary cusp extending into the ascending aorta for which the patient underwent a CT angio with contrast revealing a possible short-segment dissection flap of the ascending thoracic aorta. Given short segment dissection, clinical stability, and patient's asymptomatology, the latest findings are probably chronic in nature. She is to initiate GDMT for HFmrEF as tolerated. Consider an outpatient stress test if deemed necessary. Follow-up with a primary control valve mechanic within 3-4 weeks post-discharge. Kindly call if there are any further questions. We will sign off at this time. Thank you for allowing us to participate in this patient's care. This medical document was created using an electronic medical record system with voice recognition software and computerized dictation system. Although this document has been carefully reviewed, there might still be some phonetic and typographical errors. Occasional wrong-word or ``sound-alike substitutions may have occurred due to the inherent limitations of voice recognition software. These areas are purely typographical due to imperfections of the software programs and do not reflect any compromise in the patient's medical care. Please read the chart carefully and recognize, using context, where these substitutions have occurred. Plan discussed with: Patient, Other Date of Service: May 26, 2024 Billing Provider: MADDIE VELAZQUEZ Cardiology Common Codes: [id number] HOSP CARE(High MADDIE VELAZQUEZ May 26, 2024 13:19
[2024-05-26] MEDS: SACUBITRIL-VALSARTAN 24mg/26mg TAB PO SCH (21:37)
[2024-05-26] MEDS: METOPROLOL TARTRATE 25 MG TAB PO SCH (21:37)
[2024-05-27 01:00] VITALS: BP 105/70; PULSE 76; RESP 18; TEMP 97.6; O2SAT 98
[2024-05-27 05:00] VITALS: BP 99/55; PULSE 74; RESP 18; TEMP 98.2; O2SAT 97
[2024-05-27 06:10] LABS: Basophils # (auto) 0 10 ^3/uL (0-0.2); Basophils % (auto) 0.6 % (0.0-2.0); Eosinophils # (auto) 0.1 10 ^3/uL (0-0.8); Eosinophils % (auto) 1.2 % (0.0-7.0); Hematocrit 41.4 % (36.0-46.0); Hemoglobin 14.1 g/dL (12.2-16.2); Lymphocytes # (auto) 1.9 10 ^3/uL (0.4-5.4); Mean Corpuscular Hemoglobin 30.6 pg (28.0-32.0); Mean Corpuscular Volume 90.2 fL (80.0-100.0); Monocytes # (auto) 0.5 10 ^3/uL (0-1.3); Monocytes % (auto) 9.6 % (0.0-12.0); Neutrophils # (auto) 2.5 10 ^3/uL (1.6-8.6); Neutrophils % (auto) 49.6 % (37.0-80.0); Nucleated Red Blood Cells % 0.1 %; Platelet Count (auto) 202 10^3/uL (140-450); Red Blood Cells 4.59 10^6/uL (4.0-5.20); Red Cell Distribution Width 13.9 % (11.8-14.3); White Blood Cell 4.9 10^3/uL (4.4-10.8)
[2024-05-27 06:15] LABS: Anion Gap 9 (5-15); Carbon Dioxide 23 mmol/L (20-31); Potassium 3.7 mmol/L (3.5-5.1); Sodium 139 mmol/L (136-145)
[2024-05-27 06:16] LABS: Calcium 9.3 mg/dL (8.7-10.4)
[2024-05-27 06:21] LABS: BUN/Creatinine Ratio 21.3 (10.0-20.0); Blood Urea Nitrogen 16 mg/dL (9-23)
[2024-05-27 06:27] LABS: Chloride 107 mmol/L (98-107); Glucose 128 mg/dL (74-106)
[2024-05-27 08:00] VITALS: PULSE 72; PULSE 73; RESP 18; O2SAT 96
[2024-05-27 09:00] VITALS: BP 103/69; PULSE 72; RESP 18; TEMP 98; O2SAT 96
[2024-05-27] MEDS: FAMOTIDINE 20 MG TAB PO SCH (09:16)
[2024-05-27] MEDS: EMPAGLIFLOZIN 10 MG TAB PO SCH (09:18)
[2024-05-27] MEDS: SPIRONOLACTONE 25 MG TAB PO SCH (09:20)
[2024-05-27] MEDS ORDERED: SPIR25TA8 PO (12:05)
[2024-05-27] MEDS ORDERED: DAPA1TAB4 PO (12:05)
[2024-05-27] MEDS ORDERED: ATOR40TA52 PO (12:05)
[2024-05-27] MEDS ORDERED: ASPI81CH59 PO (12:05)
[2024-05-27] MEDS ORDERED: SACU1TAB PO (12:05)
[2024-05-27] MEDS ORDERED: METO25TA5 PO (12:05)
[2024-05-27 12:20] VITALS: BP 100/72; PULSE 61; RESP 18; TEMP 98; O2SAT 96
[2024-05-27 13:00] VITALS: BP 100/72; PULSE 61; RESP 18; TEMP 98; O2SAT 96
--- NOTE | 2024-05-27 17:57 | DVHDSRES ---
Discharge Summary Date of Admission Resident Creating Document: DONOVAN BURGOS RESIDENT May 25, 2024 at 13:53 Date of Discharge: May 27, 2024 Admitting Diagnosis Acute chest pain rule out ACS Wounds: No wound was present Labs/Diagnostic Data: Laboratory Results Test 05/27/24 05:11 05/26/24 05:23 05/25/24 15:31 05/25/24 04:06 White Blood Count 4.9 10^3/uL (4.4-10.8) Red Blood Count 4.59 10^6/uL (4.0-5.20) Hemoglobin 14.1 g/dL (12.2-16.2) Hematocrit 41.4 % (36.0-46.0) Mean Corpuscular Volume 90.2 fL (80.0-100.0) Mean Corpuscular Hemoglobin 30.6 pg (28.0-32.0) Mean Corpuscular Hemoglobin Concent 34.0 g/dL (32.0-36.0) Red Cell Distribution Width 13.9 % (11.8-14.3) Platelet Count 202 10^3/uL (140-450) Mean Platelet Volume 9.3 fL (6.9-10.8) Neutrophils (%) (Auto) 49.6 % (37.0-80.0) Lymphocytes (%) (Auto) 39.0 % (10.0-50.0) Monocytes (%) (Auto) 9.6 % (0.0-12.0) Eosinophils (%) (Auto) 1.2 % (0.0-7.0) Basophils (%) (Auto) 0.6 % (0.0-2.0) Neutrophils # (Auto) 2.5 10 ^3/uL (1.6-8.6) Lymphocytes # (Auto) 1.9 10 ^3/uL (0.4-5.4) Monocytes # (Auto) 0.5 10 ^3/uL (0-1.3) Eosinophils # (Auto) 0.1 10 ^3/uL (0-0.8) Basophils # (Auto) 0 10 ^3/uL (0-0.2) Nucleated Red Blood Cells 0.1 % Sodium Level 139 mmol/L (136-145) Potassium Level 3.7 mmol/L (3.5-5.1) Chloride Level 107 mmol/L (98-107) Carbon Dioxide Level 23 mmol/L (20-31) Anion Gap 9 (5-15) Blood Urea Nitrogen 16 mg/dL (9-23) Creatinine 0.75 mg/dL (0.550-1.02) Glomerular Filtration Rate Calc 98 mL/min (>90) BUN/Creatinine Ratio 21.3 (10.0-20.0) Serum Glucose 128 mg/dL (74-106) Calcium Level 9.3 mg/dL (8.7-10.4) Total Bilirubin 0.6 mg/dL (0.2-1.0) Aspartate Amino Transferase (AST) 23 U/L (13-40) Alanine Aminotransferase (ALT) 17 U/L (7-40) Alkaline Phosphatase 91 U/L (46-116) Total Protein 7.8 g/dL (5.7-8.2) Albumin 4.0 g/dL (3.2-4.8) Hemoglobin A1c 5.5 % A1C (<5.7) Magnesium Level 2.0 mg/dL (1.6-2.6) B-Type Natriuretic Peptide 130.35 pg/mL (0-100) Troponin I High Sensitivity 191 ng/L (</=34) Triglycerides Level 127 mg/dL (< 150) Cholesterol Level 104 mg/dL (< 200) LDL Cholesterol 60 mg/dL (< 100) HDL Cholesterol 29 mg/dL (40-59) Thyroid Stimulating Hormone (TSH) 2.51 uIU/mL (0.55-4.78) Test 05/25/24 00:14 Urine Opiates Screen Neg (NEGATIVE) Urine Fentanyl Screen Neg (NEGATIVE) Urine Barbiturates Screen Neg (NEGATIVE) Urine Phencyclidine Screen Neg (NEGATIVE) Urine Amphetamines Screen Neg (NEGATIVE) Urine Benzodiazepines Screen Neg (NEGATIVE) Urine Cocaine Screen Neg (NEGATIVE) Urine Cannabinoids Screen Neg (NEGATIVE) Other Laboratory Tests 05/27/24 05:11 Brief Hx & Hospital Course: This is a 48-year-old female with without any significant past medical history presented to the emergency with a chief complaint of chest pain for 1 day prior to this admission. Patient stated that chest pain as substernal, nonradiating, to the neck and jaw and sometimes in the left arm and associated with headache. patient she is medicated with ibuprofen, Tylenol, and aspirin last night to help reduce symptoms. the patient also mentioned similar episodes of chest pain on Friday lasting a few sec and underwent cardiac catheterization in [facility] 10 years ago. Hospital course : She underwent multiple 12 lead electrocardiograms x2 revealing a sinus rhythm with T-wave inversion to lead aVL. Troponin levels peaked at 448 ng/L. Echocardiogram revealed EF 45% with mild global hypokinesis and a hyperdense reach at the superior aspect along the non coronary cusp extending into the ascending aorta. cardiology on board and recommended CT angio with contrast which revealed possible short-segment dissection flap of the ascending thoracic aorta. Cardiology recommended Given short segment dissection, clinical stability, and patient's asymptomatology, the latest findings are probably chronic in nature, GDMT for HFmrEF and outpatient stress test if necessary. The patient is being discharged to home with aspirin 81 mg daily, atorvastatin 40 mg at HS, Lisinopril 5 mg daily, metoprolol tartrate 12.5 mg b.i.d., spironolactone 12.5 mg daily and advised to follow up with DC clinic in 1 week and with Cardiology in 3-4 weeks. Physical examination: General Appearance: Alert, Oriented X3, Cooperative, No acute distress HEENT: Atraumatic, PERRLA, EOMI, Mucous membrane moist/pink Respiratory: Clear to auscultation, Normal air movement Cardiovascular: Regular rate, Normal S1, Normal S2, No murmurs, no chest wall tenderness Abdominal: Normal bowel sounds, Soft, No tenderness, No hepatospenomegaly, No masses Extremities: No clubbing, No cyanosis, No edema, Normal pulses, No tenderness/swelling Skin: No rashes, No breakdown, No significant lesion Neuro: Normal gait, Normal speech, Strength at 5/5 X4 ext, Normal tone, Sensation intact, Cranial nerves 3-12 NL, Reflexes 2+ Psych/Mental Status: Mental status NL, Mood NL Consults/Reason for consult Cardiology was consulted Operations or Procedures ADDENDUM ADDENDUM # 1 On series 601 image 65 there is a possible short segment dissection flap of the ascending thoracic aorta. Please correlate with echocardiogram. This was communicated with Clary at the time of the addendum. ORIGINAL REPORT CT CT ANGIO CHEST CONTRAST INDICATION: Chest pain rule out ascending aortic dissection EXAM DATE: 05/26/2024 09:42 AM FINDINGS: Bones: Scattered degenerative changes are noted in the visualized osseous structures. Visualized Abdomen: Normal. Chest Wall: Normal. Soft tissues: Normal. Mediastinum: Normal. Heart: Normal. Vessels: No filling defects in the visualized pulmonary arteries including the segmental and subsegmental pulmonary arteries. Lymph Nodes: Normal. Pleura: Normal. Airways: Normal. Lung: Normal. Other: None IMPRESSION: No pulmonary embolism in the visualized pulmonary arteries including the segmental and subsegmental pulmonary arteries. EXAM: Two-dimensional and M-mode echocardiogram with Doppler and color Doppler. Blood Pressure: 95/59 mmHg INDICATION NSTEMI RISK FACTORS Height: 5', Weight: 180 DIMENSIONS LVDd 4.5 (3.8-5.7cm) LA (2D) 4.0 (1.9-4.0cm) Aortic Root 2.9 (2.0- 3.7cm) LVDs 3.5 (2.5-4.0cm) LA (MM) (1.9-4.0cm) Aortic Cusp Exc 2.1 (1.5- 2.0cm) EF (%) 45.0 (55-70%) Rt. Atrium 3.4 (1.9-4.0cm) Asc. Aorta 2.8 cm IVSd 1.0 (0.7-1.1cm) RV (D) (1.8-2.4cm) PWd 0.8 (0.7-1.1cm) Mitral Valve Mitral Mitral Stenosis E wave 0.81m/s MV Mean GR. mmHg A wave 1.02m/s MV Peak GR. mmHg E/A ratio 0.8 2D MVA cm2 DECEL Time 234ms PRESS 1/2 Time ms Aortic Valve Aortic Valve Aortic Stenosis V1 0.87m/s AO Mean GR. 4mmHg V2 1.16m/s AO Peak GR. 6mmHg LVOT Diameter 2.0 (1.8-2.4cm) Doppler JANINE 2.36cm2 Pulmonic Valve V2 0.90m/s Tricuspid Valve TR Velocity 2.06m/s RVSP 21mmHg Conclusion Technically good study. Sinus rhythm. Concentric LVH with left atrial enlargement. Valves are normal. Left ventricular function is mildly diminished. EF is approximately 45% with mild global hypokinesis. Right ventricular function is normal. The aortic root manifest a hyperdense ridge at the superior aspect along the non coronary cusp extending into the ascending aorta. Can not rule out aortic root thickening and or thrombosed flap. Clinical correlation recommended. Mild pulmonic insufficiency. Mild tricuspid regurgitation. No pericardial effusion masses or vegetations discernible. 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 Medications: As per EMR Discharge Statement: "Patient was advised to return to the ER or call 911 if any headaches, dizziness, shortness of breath, chest pain, abdominal pain, bleeding, fevers, or worsening of medical condition. Patient was counseled about treatment plan, medications, possible side effects, patientverbalized understanding. All questions were answered to the best of my ability. This discharge took greater then 30 minutes in planning, reviewing documentation, counseling the patient, and discussing with other team members." ASSESSMENT ASSESSMENT Assessment # Chest pain ruled out ACS # NSTEMI # Chronic compensated systolic HFmrEF, newly diagnosed # Possible chronic ascending aorta dissection of small degree # Grade 1 obesity, BMI 37.6 kg/m2 Date of Service: May 27, 2024 Billing Provider: PIPPA PACK MD Common Visit Codes: [id number] DISCH DAY >30min DONOVAN BURGOS RESIDENT May 27, 2024 17:57 PIPPA PACK MD May 30, 2024 23:02
== END 2024-05-27 14:05 | disposition home or self-care (01) | DRG 190 ==
LOC: ER 21:50 → OVERFLOW 05-25 13:53 → TELE-WESTW 05-25 21:45
PROVIDERS: ADMIT Student in an Organized Health Care Education/Training Program; ATTEND Student in an Organized Health Care Education/Training Program
DX: I21.4 Non-ST elevation (NSTEMI) myocardial infarction (principal); I71.010 Dissection of ascending aorta; I50.22 Chronic systolic (congestive) heart failure; E66.9 Obesity, unspecified; F41.9 Anxiety disorder, unspecified; I25.10 Atherosclerotic heart disease of native coronary artery without angina pectoris; Z68.37 Body mass index [BMI] 37.0-37.9, adult; Z79.2 Long term (current) use of antibiotics; Z79.899 Other long term (current) drug therapy; Z79.1 Long term (current) use of non-steroidal anti-inflammatories (NSAID); Z98.51 Tubal ligation status
CPT/HCPCS: 36415; 71045; 71275; 80048; 80053; 80061; 80307; 83036; 83735; 83880; 84443; 84484; 85025; 93005; 93306; G0378; J2405